=== PATIENT | male | born 1995 | race African-American/Black ===

== ENCOUNTER → 2016-06-10 | Outpatient (CLI) | payer BC, OTHER | LOC: BHSO 10:21 | DX: F90.0 Attention-deficit hyperactivity disorder, predominantly inattentive type (principal) | CPT/HCPCS: 90791-AI ==

== ENCOUNTER → 2016-07-14 | Outpatient (CLI) | payer BC, OTHER | LOC: BHSO 14:37 | DX: F90.0 Attention-deficit hyperactivity disorder, predominantly inattentive type (principal) ==

== ENCOUNTER → 2016-08-19 | Outpatient (CLI) | payer BC, OTHER | LOC: BHSO 15:53 | DX: F90.0 Attention-deficit hyperactivity disorder, predominantly inattentive type (principal) ==